=== PATIENT | female | born 1955 | race Caucasian/White ===

== ENCOUNTER → 2024-07-05 10:14 | Outpatient (REF) | payer MEDICARE, BC, SELFPAY | LOC: HWRAD 10:14 | PROVIDERS: ATTENDING PHYSICIAN Family Medicine | DX: M62.830 Muscle spasm of back (principal); M54.50 Low back pain, unspecified | CPT/HCPCS: 72110 ==

== ENCOUNTER → 2024-07-11 11:04 | Outpatient (REF) | payer MEDICARE, BC, SELFPAY | LOC: HWRAD 11:04 | PROVIDERS: ATTENDING PHYSICIAN Family Medicine; REFERRING PHYSICIAN Obstetrics & Gynecology Gynecology | DX: Z78.0 Asymptomatic menopausal state (principal); Z12.31 Encounter for screening mammogram for malignant neoplasm of breast | CPT/HCPCS: 77063; 77067; 77080 ==

== ENCOUNTER → 2025-08-23 12:21 | Outpatient (REF) | payer MEDICARE, BC, SELFPAY | LOC: HWWDC 12:21 | PROVIDERS: ATTENDING PHYSICIAN Obstetrics & Gynecology Gynecology; FAMILY PHYSICIAN Family Medicine | DX: Z12.31 Encounter for screening mammogram for malignant neoplasm of breast (principal) | CPT/HCPCS: 77063; 77067 ==

== ENCOUNTER 2025-10-12 18:37 | Emergency (ER) | payer MEDICARE, BC, SELFPAY ==
[2025-10-12 18:57] VITALS: BP 168/100
--- NOTE | 2025-10-12 19:09 | ED.SKININJ ---
HPI-Injury
General
Chief Complaint: Bite
Source: patient
Time Seen by Provider: 10/12/25 19:01
History of Present Illness-Injury
Initial Injury comments:
70-year-old female presenting to the emergency department for evaluation after she was bit on the right upper arm by a family dog. No other injuries were sustained. Dog's vaccinations are up-to-date. Patient believes her tetanus vaccine is
up-to-date. No other injuries were sustained.
Past History
Past History
ED Past Medical History: Hypercholesterolemia and Psychiatric
ED Past Surgical History: Orthopedic
Social History
Tobacco: Non-smoker
Alcohol: None
Drug: None
Personal:
Living: with family
Review of Systems
Review of Systems
All Other Systems: ROS reviewed and negative except as documented in HPI and ROS
Phy Exam
Physical Exam
Physical Exam:
GENERAL: Alert , in no apparent distress
EYE: conjunctiva clear
Head: Normocephalic atraumatic
NECK: Supple,
ENT: mmm.
LUNGS: no acute respiratory distress
NEUROLOGICAL: Alert and oriented
SKIN: Warm and dry, 2 separate bite wounds to the right upper arm, the proximalmost laceration is a little bit larger measuring approximately 1 cm in size, slightly gaping but relatively superficial. The laceration that is distal to this is about
7 mm, more approximated but no active bleeding and superficial
MUSCULOSKELETAL: well perfused.
PSYCH: Normal and appropriate interaction.
Scores
Heart Failure Risk
Heart Failure Risk Score: Not Applicable
Heart Score for Chest Pain Patients
STEMI patient?: Not applicable
Withdrawal Assessment of Alcohol
Withdrawal Assessment Completed?: Not applicable
Course
Orders/Labs/Results
Orders:
Orders
10/12/25 19:09
Amoxicillin 875 mg/Clav 125 mg [Augmentin 875 mg/125 mg] 1 tablet PO NOW STA
Vital Signs
Initial and Last Documented VS:
Initial Vital Signs
Temp Pulse Resp BP Pulse Ox
98.0 F 78 16 168/100 98
10/12/25 18:57 10/12/25 18:57 10/12/25 18:57 10/12/25 18:57 10/12/25 18:57
Last Documented Vital Signs
Temp Pulse Resp BP Pulse Ox
98.0 F 78 16 168/100 98
10/12/25 18:57 10/12/25 18:57 10/12/25 18:57 10/12/25 18:57 10/12/25 19:09
MDM/Problems Addressed
Differential Diagnosis Includes:
Superficial laceration/dog bite
No concern for fracture or tendon injury
No visualized foreign body
MDM/Problems Addressed:
70-year-old female presented to the ER for evaluation following a dog bite. Discussed with patient that due to the nature of the laceration being from a bite wound that we would prefer to not close the wound as this could increase risk for
infection. Patient expressed understanding and is in agreement with this plan. Wound was irrigated with copious normal saline. Initiated patient on Augmentin and prescription for this was sent to pharmacy. Patient advised on wound care as well
as return precautions.
*Pulse Oximetry
SaO2: 98
Oxygen Mode of Delivery: Room air
Patient hypoxic: no
*Critical Care Note
Total Time (30-74mins, 75-104mins- exclusive of procedures): Not Applicable
ED Attending Note
-
Portions of this chart may have been created with voice recognition software.� Occasional wrong word or��sound alike� substitutions may have occurred due to the inherent limitations of voice recognition software.
Discharge Plan
Departure
Patient Disposition: Home (Routine Discharge)
Date of Disposition: 10/12/25
Time of Disposition: 19:09
Patient with high blood pressure during this ER visit?: Yes
Discharge Problem:
Dog bite of right arm
Instructions: Animal Bites (DC)
Prescriptions:
New
amoxicillin-pot clavulanate 875-125 mg tablet
1 tab PO BID Qty: 13 0RF
Interventions
Interventions:
*Neglect/Abuse Screening Last Done: 10/12/25 19:25
*Risk Screen - Suicide (C-SSRS) Last Done: 10/12/25 18:57
*Nursing Disposition Last Done: 10/12/25 19:26
ED-Skin Assessment Last Done: 10/12/25 19:25
Discharge Date and Time
Discharge Date/Time: 10/12/25 19:26
Print Language: TOGOLESE
[2025-10-12] MEDS: AUGMENTIN 875 MG/125 MG 1 TABLET PO (19:14)
== END 2025-10-12 19:26 | disposition home or self-care (01) ==
LOC: EMR 18:37
PROVIDERS: EMERGENCY PHYSICIAN Emergency Medicine; FAMILY PHYSICIAN Family Medicine
DX: S41.151A Open bite of right upper arm, initial encounter (principal); W54.0XXA Bitten by dog, initial encounter; E78.00 Pure hypercholesterolemia, unspecified
CPT/HCPCS: 99283